=== PATIENT | male | born 1960 | race Caucasian/White ===

== ENCOUNTER 2024-11-06 09:33 | Inpatient (IN) | payer OTHER ==
[2024-11-06 10:02] VITALS: BMI 26.6
[2024-11-06] MEDS ORDERED: ACETAMINOPHEN 325 MG TABLET (FP) PO PRN (10:09)
[2024-11-06] MEDS ORDERED: BISMUTH SUBSALICYLATE 524 MG/30 ML PO PRN (10:09)
[2024-11-06] MEDS ORDERED: MAGNESIUM HYDROX 2400MG/30ML ORAL SUSPENSION 30 ML CUP PO PRN (10:09)
[2024-11-06] MEDS ORDERED: NALOXONE (NARCAN) HCL 4 MG/0.1 ML SPRAY NS PRN (10:09)
[2024-11-06] MEDS ORDERED: POLYETHYLENE GLYCOL (HEALTHYLAX) 3350 17 GM PACKET PO PRN (10:09)
[2024-11-06] MEDS ORDERED: guaiFENesin 600 MG TABLET.ER (FP) PO PRN (10:09)
[2024-11-06] MEDS ORDERED: BENZONATATE 200 MG CAPSULE PO PRN (10:09)
[2024-11-06] MEDS ORDERED: BENZOCAINE/MENTHOL (CHLORASEPTIC ) LOZENGE MM PRN (10:09)
[2024-11-06] MEDS ORDERED: LOPERAMIDE HCL 2 MG CAPSULE PO PRN (10:09)
[2024-11-06] MEDS ORDERED: IBUPROFEN 400 MG TABLET (FP) PO PRN (10:09)
[2024-11-06] MEDS ORDERED: DICYCLOMINE HCL 10 MG CAPSULE PO PRN (10:09)
[2024-11-06] MEDS ORDERED: methaDONE HCL 10 MG TABLET PO SCH (11:00)
[2024-11-06] MEDS: diazePAM 5 MG TABLET PO SCH (11:45)
[2024-11-06] MEDS ORDERED: methaDONE HCL 10 MG TABLET ONE (11:47)
[2024-11-06] MEDS: DOXYCYCLINE HYCLATE 100 MG TABLET PO SCH (13:27)
[2024-11-06] MEDS: cloNIDine HCL 0.1 MG TABLET PO SCH (13:27)
[2024-11-06] MEDS: METHOCARBAMOL 500 MG TABLET PO PRN (21:25)
[2024-11-06] MEDS: IBUPROFEN 600 MG TABLET (FP) PO PRN (21:26)
[2024-11-06] MEDS: MELATONIN 5 MG TABLETS PO SCH (22:30)
[2024-11-06] MEDS: THIAMINE 100 MG TABLET PO SCH (22:30)
[2024-11-07] MEDS: methaDONE HCL 10 MG TABLET PO ONE (10:18)
[2024-11-07] MEDS: PRENATAL VITAMINS W/ FOLIC ACID TABLET (FP) PO SCH (10:18)
[2024-11-07 11:19] LABS: HEMATOCRIT 36.4 % (35.4-49); MCH 26.7 pg (25.7-33.7); MCHC 32.9 g/dl (32.0-35.9); MEAN CELL VOLUME 81.4 fl (80-96); MEAN PLT VOLUME 10.6 fl (7.5-11.1); PLATELET COUNT 223 10^3/uL (134-434); RBC 4.47 M/mm3 (4.00-5.60); RDW 15.2 % (11.9-15.9); WHITE BLOOD COUNT 4.6 K/mm3 (4.0-10.0)
[2024-11-07 11:30] LABS: POTASSIUM 3.8 mmol/L (3.5-5.1)
[2024-11-07 11:35] LABS: CALCIUM 8.9 mg/dL (8.5-10.1)
[2024-11-07 11:36] LABS: ALBUMIN 3.1 g/dl (3.4-5.0); BLOOD UREA NITROGEN 13.8 mg/dL (7-18)
[2024-11-07 11:39] LABS: CREATININE 0.6 mg/dL (0.55-1.3)
[2024-11-07 11:40] LABS: BILIRUBIN,TOTAL 0.6 mg/dL (0.2-1); TOT PROT 6.9 g/dl (6.4-8.2)
[2024-11-07] MEDS: hydrOXYzine PAMOATE 25 MG CAPSULE (FP) PO PRN (22:52)
[2024-11-08] MEDS: diazePAM 5 MG TABLET PO SCH (05:42)
[2024-11-08] MEDS: MAG HYDROX/AL HYDROX/SIMETH 30 ML UNIT-DOSE CUP PO PRN (09:07)
[2024-11-08] MEDS: ONDANSETRON *ODT* 4 MG TABLET SL PRN (09:08)
[2024-11-08] MEDS: cloNIDine HCL 0.1 MG TABLET PO PRN (11:29)
[2024-11-08] MEDS: diazePAM 5 MG TABLET PO PRN (17:56)
[2024-11-09] MEDS: diazePAM 5 MG TABLET PO SCH (05:20)
[2024-11-09] MEDS: MINERAL OIL/PET HY-PHL TOPICAL OINTMENT 454 GM JAR TP SCH (13:58)
[2024-11-10] MEDS: diazePAM 5 MG TABLET PO ONE (05:11)
[2024-11-11] MEDS: NALOXONE (NYS OPIOID OVERDOSE PROGRAM) 4 MG/0.1 ML SPRAY NS SCH (11:14)
[2024-11-12] MEDS: NALOXONE (NYS OPIOID OVERDOSE PROGRAM) 4 MG/0.1 ML SPRAY NS SCH (11:33)
[2024-11-12 16:41] VITALS: BP 121/78; PULSE 85; RESP 16; TEMP 97.3
== END 2024-11-12 16:48 | disposition other institution (70) | DRG 897 ==
LOC: YASAS 09:33 → Y3N 11:31
PROVIDERS: ADMIT Allergy & Immunology; ATTEND Surgery
PROC: HZ2ZZZZ Detoxification Services for Substance Abuse Treatment (ICD-10-PCS; principal; 2024-11-06)
DX: F11.23 Opioid dependence with withdrawal (principal); F13.20 Sedative, hypnotic or anxiolytic dependence, uncomplicated; L03.115 Cellulitis of right lower limb; L03.116 Cellulitis of left lower limb; Z59.00 Homelessness unspecified; F10.230 Alcohol dependence with withdrawal, uncomplicated; F19.24 Other psychoactive substance dependence with psychoactive substance-induced mood disorder; Z99.89 Dependence on other enabling machines and devices
CPT/HCPCS: 36415; 80053; 80307; 85027; 86780; 93005; 93010; Q0162

== ENCOUNTER 2024-11-12 17:07 | Inpatient (IN) | payer OTHER ==
[2024-11-12] MEDS ORDERED: IBUPROFEN 400 MG TABLET (FP) PO PRN (18:47)
[2024-11-12] MEDS ORDERED: ACETAMINOPHEN 325 MG TABLET (FP) PO PRN (18:47)
[2024-11-12] MEDS ORDERED: MAGNESIUM HYDROX 2400MG/30ML ORAL SUSPENSION 30 ML CUP PO PRN (18:47)
[2024-11-12] MEDS ORDERED: NALOXONE HCL 0.4 MG/ML VIAL IVPUSH PRN (18:47)
[2024-11-12] MEDS ORDERED: MAG HYDROX/AL HYDROX/SIMETH 30 ML UNIT-DOSE CUP PO PRN (18:47)
[2024-11-12] MEDS ORDERED: BENZONATATE 200 MG CAPSULE PO PRN (18:47)
[2024-11-12] MEDS ORDERED: BENZOCAINE/MENTHOL (CHLORASEPTIC ) LOZENGE MM PRN (18:47)
[2024-11-12] MEDS ORDERED: guaiFENesin 600 MG TABLET.ER (FP) PO PRN (18:47)
[2024-11-12] MEDS ORDERED: POLYETHYLENE GLYCOL (HEALTHYLAX) 3350 17 GM PACKET PO PRN (18:47)
[2024-11-12] MEDS ORDERED: LOPERAMIDE HCL 2 MG CAPSULE PO PRN (18:47)
[2024-11-12] MEDS ORDERED: NALOXONE (NARCAN) HCL 4 MG/0.1 ML SPRAY NS PRN (18:47)
[2024-11-12] MEDS: THIAMINE 100 MG TABLET PO SCH (21:09)
[2024-11-12] MEDS: MELATONIN 5 MG TABLETS PO SCH (21:09)
[2024-11-13] MEDS: methaDONE HCL 40 MG DISPERSABLE TABLET PO SCH (06:17)
[2024-11-13] MEDS: hydrOXYzine PAMOATE 25 MG CAPSULE (FP) PO PRN (06:19)
[2024-11-13] MEDS: DOXYCYCLINE HYCLATE 100 MG TABLET PO SCH (09:43)
[2024-11-13] MEDS: PRENATAL VITAMINS W/ FOLIC ACID TABLET (FP) PO SCH (09:43)
[2024-11-13] MEDS ORDERED: ONDANSETRON *ODT* 4 MG TABLET SL PRN (09:54)
[2024-11-13] MEDS ORDERED: DICYCLOMINE HCL 10 MG CAPSULE PO PRN (09:54)
[2024-11-13] MEDS: METHOCARBAMOL 500 MG TABLET PO PRN (10:10)
[2024-11-13] MEDS: IBUPROFEN 600 MG TABLET (FP) PO PRN (19:35)
[2024-11-13] MEDS: BACITRACIN 0.9 GM PACKET TP SCH (21:35)
[2024-11-13] MEDS: busPIRone HCL 10 MG TABLET (FP) PO SCH (21:35)
[2024-11-13] MEDS: MIRTAZAPINE 15 MG TABLET (FP) PO SCH (21:36)
[2024-11-15] MEDS: HYDROCHLOROTHIAZIDE 12.5 MG CAPSULE (FP) PO SCH (10:09)
[2024-11-20] MEDS: methaDONE HCL 40 MG DISPERSABLE TABLET PO SCH (05:57)
[2024-11-23] MEDS: BISMUTH SUBSALICYLATE 262 MG/15 ML BTL PO PRN (17:30)
[2024-11-25] MEDS: MINERAL OIL/PET HY-PHL TOPICAL OINTMENT 454 GM JAR TP PRN (09:57)
[2024-11-27] MEDS: METHOCARBAMOL 500 MG TABLET PO PRN (21:31)
[2024-11-28] MEDS ORDERED: methaDONE HCL 40 MG DISPERSABLE TABLET PO SCH (06:00)
[2024-12-01] MEDS: methaDONE HCL 40 MG DISPERSABLE TABLET PO SCH (07:24)
[2024-12-02] MEDS: methaDONE HCL 10 MG TABLET PO SCH (05:49)
[2024-12-03] MEDS ORDERED: amLODIPine BESYLATE 5 MG TABLET (FP) PO SCH (10:00)
[2024-12-03] MEDS: amLODIPine BESYLATE 5 MG TABLET (FP) PO SCH (11:01)
[2024-12-04] MEDS: cloNIDine HCL 0.1 MG TABLET PO PRN (09:52)
[2024-12-05] MEDS ORDERED: methaDONE HCL 10 MG TABLET PO SCH (06:00)
[2024-12-06 06:37] VITALS: RESP 18; TEMP 97.8
[2024-12-07 06:57] VITALS: BP 158/97; PULSE 87
[2024-12-07] MEDS: NALOXONE (NYS OPIOID OVERDOSE PROGRAM) 4 MG/0.1 ML SPRAY NS SCH (11:54)
== END 2024-12-07 12:11 | disposition left against medical advice (07) | DRG 895 ==
LOC: YASAS 17:07 → Y3W 17:08
PROVIDERS: ADMIT Psychiatry & Neurology Pain Medicine; ATTEND Psychiatry & Neurology Pain Medicine
PROC: HZ42ZZZ Group Counseling for Substance Abuse Treatment, Cognitive-Behavioral (ICD-10-PCS; principal; 2024-11-12)
DX: F11.20 Opioid dependence, uncomplicated (principal); F13.20 Sedative, hypnotic or anxiolytic dependence, uncomplicated; F19.282 Other psychoactive substance dependence with psychoactive substance-induced sleep disorder; F19.280 Other psychoactive substance dependence with psychoactive substance-induced anxiety disorder; L97.528 Non-pressure chronic ulcer of other part of left foot with other specified severity; L97.518 Non-pressure chronic ulcer of other part of right foot with other specified severity; L03.116 Cellulitis of left lower limb; L03.115 Cellulitis of right lower limb; Z59.01 Sheltered homelessness; F19.24 Other psychoactive substance dependence with psychoactive substance-induced mood disorder; F41.9 Anxiety disorder, unspecified; L85.3 Xerosis cutis; B35.1 Tinea unguium; M54.50 Low back pain, unspecified; G89.29 Other chronic pain; R60.0 Localized edema; R26.89 Other abnormalities of gait and mobility; Z99.89 Dependence on other enabling machines and devices; F91.8 Other conduct disorders; Z91.199 Patient's noncompliance with other medical treatment and regimen due to unspecified reason
CPT/HCPCS: 36415; 82962; 86803; 87522